=== PATIENT | male | born 1950 | race Caucasian/White ===

== ENCOUNTER 2019-05-06 17:25 | Emergency (ER) | payer BC, OTHER ==
[2019-05-06 17:28] VITALS: BP 140/84; PULSE 87
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
== END 2019-05-06 18:35 | disposition home or self-care (01) ==
LOC: JP.ED 17:25
DX: S20.212A Contusion of left front wall of thorax, initial encounter (principal); I10 Essential (primary) hypertension; Z79.899 Other long term (current) drug therapy; V49.49XA Driver injured in collision with other motor vehicles in traffic accident, initial encounter
CPT/HCPCS: 99282; 99284

== ENCOUNTER 2021-11-22 07:14 | Day surgery (SDC) | payer BC, MEDICARE ==
[~2021-11-22 07:14] MED LIST: Bupivacaine 0.5%/EPINEPHrine 1:200,000 50 ML MDV ONE
[2021-11-22] MEDS: Acetaminophen 500 MG Tab PO ONE (07:45)
[2021-11-22] MEDS: Dextrose 5%-Lactated Ringers 1,000 ML IV SCH (07:55)
[2021-11-22] MEDS ORDERED: Midazolam 1 MG/ML 2 ML SDV ONE (09:02)
[2021-11-22] MEDS ORDERED: fentaNYL 100 MCG/2 ML SDV ONE (09:02)
[2021-11-22] MEDS ORDERED: Propofol 200 MG/20 ML SDV ONE ×2 (09:02→09:29)
[2021-11-22] MEDS: ceFAZolin 2 GM in Sodium Chloride 0.9% 50 ML IV ONE (09:05)
[2021-11-22] MEDS ORDERED: Ketorolac 30 MG/ML SDV ONE (09:29)
[2021-11-22] MEDS: Lidocaine 1% with EPINEPHrine 1:100,000 50 ML MDV ONE (09:43)
[2021-11-22] MEDS: Bupivacaine 0.5% 50 ML MDV ONE (09:43)
[2021-11-22] MEDS: oxyCODONE 5 MG Tab PO PRN (11:19)
[2021-11-22 11:50] VITALS: BP 105/54; PULSE 51
== END 2021-11-22 12:23 | disposition home or self-care (01) ==
LOC: JP.SDS 07:14
PROVIDERS: ATTEND Surgery
DX: K40.30 Unilateral inguinal hernia, with obstruction, without gangrene, not specified as recurrent (principal); I10 Essential (primary) hypertension; E78.5 Hyperlipidemia, unspecified; R73.9 Hyperglycemia, unspecified
CPT/HCPCS: 88302; A9270-GY; C1713; C1781; J0690; J1885; J2250; J2704; J3010; J3490; J7121

== ENCOUNTER 2022-01-30 07:41 | Inpatient (IN) | payer BC, MEDICARE ==
[2022-01-30 08:20] LABS: ESTIMATED GFR 92 mL/min (>60)
[2022-01-30] MEDS: Nozin Nasal Sanitizer NASBOTH SCH ×2 (08:33→21:20)
[2022-01-30] MEDS ORDERED: fentaNYL 100 MCG/2 ML SDV ONE (08:38)
[2022-01-30] MEDS ORDERED: Midazolam 1 MG/ML 2 ML SDV ONE ×2 (08:38→11:50)
[2022-01-30] MEDS ORDERED: Propofol 200 MG/20 ML SDV ONE ×2 (08:38→11:41)
[2022-01-30] MEDS ORDERED: Lactated Ringers 1,000 ML IV SCH (09:00)
[2022-01-30] MEDS ORDERED: Bupivacaine 0.5% 50 ML MDV ONE (09:25)
[2022-01-30] MEDS ORDERED: ceFAZolin 2 GM in Sodium Chloride 0.9% 50 ML IV ONE (09:30)
[2022-01-30] MEDS ORDERED: Tranexamic Acid 1,000 MG in Sodium Chloride 0.9% 500 ML IV ONE (10:00)
[2022-01-30] MEDS ORDERED: Tranexamic Acid 730 MG in Sodium Chloride 0.9% 50 ML IV ONE (10:00)
[2022-01-30] MEDS ORDERED: Lactated Ringers 1,000 ML ONE (11:57)
[2022-01-30] MEDS ORDERED: Ondansetron 4 MG Tab.DIS PO PRN (13:21)
[2022-01-30] MEDS ORDERED: Morphine 2 MG/ML SYRINGE IVPUSH PRN (13:21)
[2022-01-30] MEDS ORDERED: traMADol 50 MG Tab PO PRN (13:21)
[2022-01-30] MEDS ORDERED: Magnesium Hydroxide 400 MG/5 ML Susp 30 ML Cup PO PRN (13:21)
[2022-01-30] MEDS ORDERED: oxyCODONE 5 MG Tab PO PRN (13:27)
[2022-01-30] MEDS: Sodium Chloride 0.9% 1,000 ML IV SCH (14:57)
[2022-01-30] MEDS: Acetaminophen 325 MG Tab PO SCH ×2 (16:07→21:20)
[2022-01-30] MEDS: ceFAZolin 1 GM in Premix Bag 1 BAG IV SCH (17:56)
[2022-01-30] MEDS ORDERED: Nozin Nasal Sanitizer NASBOTH SCH (21:00)
[2022-01-30] MEDS: Aspirin 325 MG Tab.EC PO SCH (21:20)
[2022-01-31] MEDS: ceFAZolin 1 GM in Premix Bag 1 BAG IV SCH (01:29)
[2022-01-31] MEDS: Sodium Chloride 0.9% 1,000 ML IV SCH ×2 (01:30→08:12)
[2022-01-31] MEDS: Acetaminophen 325 MG Tab PO SCH ×4 (04:18→22:39)
[2022-01-31] MEDS: Nozin Nasal Sanitizer NASBOTH SCH ×2 (08:13→19:59)
[2022-01-31] MEDS: Docusate Sodium 100 MG Cap PO SCH (08:14)
[2022-01-31] MEDS: Chlorthalidone 25 MG Tab PO SCH (08:14)
[2022-01-31] MEDS: Aspirin 325 MG Tab.EC PO SCH ×2 (08:14→19:59)
[2022-02-01] MEDS: Acetaminophen 325 MG Tab PO SCH ×2 (03:32→10:16)
[2022-02-01] MEDS: Docusate Sodium 100 MG Cap PO SCH (08:44)
[2022-02-01] MEDS: Chlorthalidone 25 MG Tab PO SCH (08:44)
[2022-02-01] MEDS: Aspirin 325 MG Tab.EC PO SCH (08:45)
[2022-02-01] MEDS: Nozin Nasal Sanitizer NASBOTH SCH (08:45)
[2022-02-01 10:19] VITALS: BP 104/61; PULSE 86
== END 2022-02-01 13:22 | disposition home health service (06) | DRG 301 ==
LOC: JP.SDS 07:41 → JP.2SS 13:21 → JP.SDS 01-31 16:47 → JP.2SS 01-31 16:47
PROVIDERS: ADMIT Specialist; ATTEND Specialist
PROC: 0SRB01A Replacement of Left Hip Joint with Metal Synthetic Substitute, Uncemented, Open Approach (ICD-10-PCS; principal; 2022-01-31)
DX: M16.12 Unilateral primary osteoarthritis, left hip (principal); I10 Essential (primary) hypertension; Z88.0 Allergy status to penicillin
CPT/HCPCS: 36415; 72170; 72170-26; 80053; 85027; 97110-GP; 97116-GP; 97161-GP; 97165-GO; 97530-GP; 97535-GP; A9270-GY; C1713; C1776; J0690; J2250; J2704; J3010; J3490; J7030; J7120